=== PATIENT | female | born 2000 ===

== ENCOUNTER → 2021-07-12 | Outpatient (CLI) | payer OTHER | END | disposition home or self-care (01) | LOC: LAB SHORT 18:34 | DX: L08.9 Local infection of the skin and subcutaneous tissue, unspecified (principal); L02.811 Cutaneous abscess of head [any part, except face]; D22.62 Melanocytic nevi of left upper limb, including shoulder; D22.61 Melanocytic nevi of right upper limb, including shoulder; L81.4 Other melanin hyperpigmentation; Z71.89 Other specified counseling | CPT/HCPCS: 87070; 87077; 87147; 87186; 87205 ==